=== PATIENT | female | born 1930 | race African-American/Black ===

== ENCOUNTER 2016-08-28 16:32 | Outpatient (CLI) | payer MEDICARE, MEDICAID | END 2016-08-28 16:33 | disposition home or self-care (01) | LOC: MADLABBHPM 16:32 | PROVIDERS: ATTEND Family Medicine | DX: N39.0 Urinary tract infection, site not specified (principal) ==

== ENCOUNTER 2016-09-04 16:06 | Outpatient (CLI) | payer MEDICARE, MEDICAID ==
[2016-09-04 16:46] LABS: Bilirubin Negative (Negative); Blood, Urine Negative (Negative); Clarity Clear (Clear); Glucose, Urine (Dipstick) Negative (Negative); Leukocyte Negative (Negative); Nitrite Negative (Negative); Protein, Urine (Dipstick) Negative (Neg-Trace); Urobilinogen 0.2 mg/dL (0.2-1.0); pH, Urine 5.5 (5.0-9.0)
[2016-09-04 16:47] LABS: Bacteria/HPF Rare-Few HPF (None Seen); RBC/HPF 0-3 HPF (0-3); Squamous Epithelial 0-3 HPF (0-3); WBC/HPF 0-3 HPF (0-3)
[2016-09-04 16:48] LABS: Crystals/HPF 1+ CA OXALATE HPF (Negative); Other Microscopic Description C&S SET UP
== END 2016-09-04 16:07 | disposition home or self-care (01) ==
LOC: MADLAB 16:06
PROVIDERS: ATTEND Family Medicine
DX: N39.0 Urinary tract infection, site not specified (principal)
CPT/HCPCS: 81001; 87086

== ENCOUNTER 2017-07-12 16:24 | Emergency (ER) | payer MEDICARE, MEDICAID ==
[~2017-07-12 16:24] MED LIST: Sodium Chloride 0.9% 1,000 ML BAG ONE; Sodium Chloride 0.9% 100 ML BAG ONE; Sodium Chloride 0.9% 500 ML BAG ONE
[2017-07-12 17:56] LABS: ALT (SGPT) 41 U/L (8-55); AST (SGOT) 49 U/L (5-34); Albumin 3.3 g/dL (3.4-4.8); Alkaline Phosphatase 98 U/L (40-150); Anion Gap 18 mmol/L (10-20); BUN (Urea Nitrogen) 23 mg/dL (9.8-20.1); Bilirubin, Total 0.8 mg/dL (0.2-1.2); Calc. Creatinine Clearance 0 mL/min (70-130); Calcium 10.7 mg/dL (7.8-10.44); Carbon Dioxide 25 mmol/L (23-31); Chloride 112 mmol/L (98-107); Estimated GFR-MDRD 71; Globulin 3.5 g/dL (2.4-3.5); Glucose 223 mg/dL (83-110); Potassium 4.5 mmol/L (3.5-5.1); Protein, Total 6.8 g/dL (6.0-8.3); Sodium 150 mmol/L (136-145)
[2017-07-12 18:14] LABS: Troponin I 0.091 ng/mL (< 0.028)
[2017-07-12 18:17] LABS: #Basophils 0.1 thou/uL (0.0-0.2); #Lymphocytes 0.7 thou/uL (1.20-3.40); #Monocytes 1.3 thou/uL (0.11-0.59); #Neutrophils 13.7 thou/uL (1.40-6.50); %Basophils 0.5 % (0.0-1.0); %Lymphocytes 4.1 % (21.0-51.0); %Monocytes 8.3 % (0.0-10.0); Hemoglobin 15.4 g/dL (12.0-16.0); Mean Corpuscular HGB CONC 31.7 g/dL (32.0-36.0); Mean Corpuscular Volume 91.4 fl (81.0-99.0); Mean Platelet Volume 8.2 fL (7.4-10.4); Platelet Count 198 thou/uL (130-400); RBC Distribution Width 12.6 % (11.5-14.5); Red Blood Cell (RBC) Count 5.33 mill/uL (4.20-5.40); White Blood Cell (WBC) Count 15.7 thou/uL (4.8-10.8)
[2017-07-12 18:22] LABS: CKMB 7.8 ng/mL (0-6.6)
[2017-07-12 18:26] LABS: Bilirubin Small (Negative); Blood, Urine Negative (Negative); Clarity Slightly Cloudy (Clear); Glucose, Urine (Dipstick) Negative (Negative); Leukocyte Negative (Negative); Nitrite Negative (Negative); Protein, Urine (Dipstick) 30 mg/dL (Neg-Trace)
[2017-07-12] MEDS ORDERED: Piperacillin/Tazobactam 3.375 GM VIAL ONE (18:42)
[2017-07-12 18:55] LABS: Bacteria/HPF 4+ HPF (None Seen); RBC/HPF 0-3 HPF (0-3); Specific Gravity, Urine 1.025 (1.002-1.036); WBC/HPF 0-3 HPF (0-3)
--- NOTE | 2017-07-12 19:13 | RAD ---
PORTABLE CHEST 07/12/17 PROVIDED CLINICAL HISTORY: Altered mental status. FINDINGS: Cardiac silhouette is within normal limits. There is tortuosity and ectasia of the thoracic aorta. No focal consolidation, pleural fluid or pneumothorax apparent. IMPRESSION: No evidence for an acute cardiopulmonary process. POS: H
[2017-07-12] MEDS ORDERED: Vancomycin HCl 500 MG VIAL ONE (19:24)
== END 2017-07-12 20:23 | disposition short-term general hospital (02) ==
LOC: MADERS 16:24
DX: E87.0 Hyperosmolality and hypernatremia (principal); E86.0 Dehydration; R41.82 Altered mental status, unspecified; F03.90 Unspecified dementia, unspecified severity, without behavioral disturbance, psychotic disturbance, mood disturbance, and anxiety; E11.9 Type 2 diabetes mellitus without complications
CPT/HCPCS: 36415; 51701; 71045; 80053; 81003; 81015; 82553; 84443; 84484; 85025; 87040; 87086; 93005; 96361; 96365; A4353; J2543; J3370; J7050

== ENCOUNTER 2017-07-17 16:25 | Inpatient (IN) | payer MEDICARE, MEDICAID ==
[2017-07-17] MEDS ORDERED: Acetaminophen 325 MG TAB PO PRN (18:15)
[2017-07-17] MEDS ORDERED: Artificial Tear Sol 15 ML BOT EA EYE PRN (18:16)
[2017-07-17] MEDS ORDERED: Bisacodyl 10 MG SUPP PR PRN (18:16)
[2017-07-17] MEDS ORDERED: Prevnar 13-Val Conj/PF 0.5 ML SYRINGE IM ONE (19:30)
--- NOTE | 2017-07-18 02:30 | HP ---
Erika Diez admitted to [facility] to extended care on 07/17/2017. CHIEF COMPLAINT: Weakness. HISTORY OF PRESENT ILLNESS: The patient is an 87-year-old Emanuel female who lives with her family, wh o take care of her and assist her with all her ADLs. Patient has a history of advanced Alzheimer dis ease, hypertension, diabetes, had been managed with diet alone. Her last hemoglobin A1c of 6.1. Stella yost usually is able to walk very short distances in the home with some assistance. Patient usually eats very well. The patient was admitted [facility] on 07/12/2017 because of increased weak ness, lethargy, and not eating. She was found to be dehydrated with hypernatremia with sodium of 150 . Her GFR was mildly depressed. Her urine showed 4+ bacteria and her lactic acid was elevated. Stella yost was admitted to the hospital with the diagnosis of dehydration, possible urinary tract infection , and hypernatremia secondary to not resulting in alteration of her mental status. The patient was c autiously hydrated and placed on IV Rocephin and Levaquin. An echocardiogram was done which showed l eft ventricle normal size and ejection fraction was 60%-65%. There is some diastolic dysfunction. P valentin's blood culture had no growth and urine culture had no growth. The patient was converted to o ral antibiotics using Levaquin. Her mental status returned to her usual. Her appetite returned to h er normal, but she was left extremely weak. Family had requested that she be transferred to [facility] to nursing home facility for purposes of physical therapy in an effort to try to improve her general functional capability. The patient was seen soon after her admission at [facility] on the afternoon of 07/17/2017. He r daughter is Shannon and other daughter Brenda Ag with her and have been staying with her, however, able to relay her history. They said that she had gone to the hospital because she was not eating, h ad got much weaker, could no longer walk or even a short distance that she had been and was much less responsive. Since her hospitalization, she has not yet been back to her usual self other than the w lucy. They hope to get her back where she can walk a little bit, so they can more easily take car e of her in the home. The patient not able to give any history, but did said she was feeling alright . PAST HISTORY: Hospitalized at [facility] in [place] from 07/12/2017 to 07/17/2017 for UTI, de hydration, and alteration in mental status. The patient has advanced Alzheimer disease, diabetes typ e 2 that is diet controlled. Last hemoglobin A1c was 6.1 in 05/2016. She has hypertension. She als o has history of hypercholesterolemia, bradycardia, and generalized osteoarthritis. Patient has had a laparoscopic cholecystectomy and a tubal ligation. PRESENT MEDICINES: When patient was discharged from [facility], she was on the following medicines, acetaminophen 650 mg every 4 hours as needed, amlodipine 10 mg daily, Artificial Tears 1 d rop in the eyes p.r.n. dryness, aspirin 81 mg daily, Dulcolax suppository 10 mg 1 daily p.r.n., carve dilol 3.125 mg b.i.d., enoxaparin 30 mg subcu daily and Levaquin 500 mg daily. ALLERGIES: MOBIC, makes her crazy; HYDROCHLOROTHIAZIDE, causes dizziness and vertigo; KLOR-CON, upse t stomach. REVIEW OF SYSTEMS: Patient has not had any trouble with her eye, ear, nose or throat. PULMONARY: No shortness of breath. CARDIOVASCULAR: No chest pain. GASTROINTESTINAL: Patient's appetite is getting back to her normal. She has been eating good. She is eating a mechanical soft diet. She has had no vomiting, no diarrhea. GENITOURINARY: Incontinent of urine. ADLs: The patient is able to walk very a few steps with her family assisting and she can sit up in a chair. She can feed herself. She requires someone to help dress her and bathe her. She is inconti nent of urine and stools. All her instrumental ADLs require family to tend to. HABITS: Alcohol none. Tobacco none. SOCIAL HISTORY: Patient lives with her family to take care of her. CODE STATUS: DNR. PHYSICAL EXAMINATION: GENERAL: Shows a very pleasant 87-year-old Emanuel female who is lying in bed and humming and she is s miling, looks very comfortable and in no distress. VITAL SIGNS: Shows a temperature of 97.3, pulse 58, respirations 18, O2 sat 99%, blood pressure 92/5 2. Her weight is 134. HEAD: Normocephalic. EYES: Pupils were equal, round, and reactive. EARS: Left TM clear. Right ear could not visualize the TMs. NOSE: Normal. MOUTH AND THROAT: Mucous membranes are moist. NECK: Carotids are equal and strong, no bruits. Thyroid not enlarged. LUNGS: Clear. HEART: Regular rate. No murmurs. ABDOMEN: Soft. No organomegaly, no areas of tenderness. EXTREMITIES: No edema. NEUROLOGIC: Patient is disoriented to time, place, and situation. She has generalized weakness, but no focal weakness. IMPRESSION: 1. Generalized weakness. a. With recent illness, she has had decline in her functional capability where she is no longer to a [facility] with transfer or walk a few steps. She was prior to the acute illness. 2. Status post hospitalization at [facility] from 07/12/2017 until 07/17/2017 for; a. De hydration with hypernatremia and mild decline in GFR. b. Alteration in mental status that resolved. c. Possible urinary tract infection. Blood cultures and urine culture were negative. Do not know i f the urine was collected after antibiotics were initiated. 3. Advanced Alzheimer disease. a. Complicated by urine and fecal incontinence. b. Requires assistance with her ADLs and all her instrumental ADLs. 4. Hypertension. a. Presently too tightly controlled. 5. History of bradycardia, asymptomatic. 6. History of diabetes mellitus type 2, has not required any medication. 7. Generalized osteoarthritis, particularly of the knees. CODE STATUS: DNR. PLAN: The patient has been admitted to [facility] where Physical therapy will work with her in an effort to try to improve her functional capability. Goals will be to try to help get her to a [facility] where she can assist with transferring, may take just a few steps and also feed herself. These s kills would greatly assist the family's ability to attend her in the home. We will continue the DVT prophylaxis with Lovenox. We will stop the amlodipine since pressure too tightly controlled and she has a history of this causing her to go crazy and also will stop the carvedilol due to her bradycardi a. See orders.
[2017-07-18 06:07] LABS: Anion Gap 13 mmol/L (10-20); BUN (Urea Nitrogen) 7 mg/dL (9.8-20.1); Calc. Creatinine Clearance 65 mL/min (70-130); Calcium 9.1 mg/dL (7.8-10.44); Carbon Dioxide 26 mmol/L (23-31); Chloride 109 mmol/L (98-107); Estimated GFR-MDRD Greater than 90; Glucose 102 mg/dL (83-110); Potassium 3.4 mmol/L (3.5-5.1); Sodium 145 mmol/L (136-145)
[2017-07-18 06:19] LABS: #Basophils 0.1 thou/uL (0.0-0.2); #Eosinphils 0.1 thou/uL (0.0-0.7); #Lymphocytes 1.7 thou/uL (1.20-3.40); #Monocytes 0.4 thou/uL (0.11-0.59); #Neutrophils 1.7 thou/uL (1.40-6.50); %Basophils 1.6 % (0.0-1.0); %Eosinophils 2.1 % (0.0-10.0); %Lymphocytes 44.2 % (21.0-51.0); %Neutrophils 43.1 % (42.0-75.0); Hemoglobin 11.8 g/dL (12.0-16.0); Mean Corpuscular Hemoglobin 28.7 pg (27.0-31.0); Mean Corpuscular Volume 89.7 fl (81.0-99.0); Platelet Count 227 thou/uL (130-400); RBC Distribution Width 12.1 % (11.5-14.5); White Blood Cell (WBC) Count 3.9 thou/uL (4.8-10.8)
[2017-07-18] MEDS: Aspirin 81 mg Enteric Coated Tablet PO SCH (08:30)
[2017-07-18] MEDS: Enoxaparin Sodium 30 MG/0.3 ML SYRINGE SC SCH (08:30)
[2017-07-18] MEDS: Saccharomyces boulardii 250 MG CAP PO SCH (08:30)
--- NOTE | 2017-07-18 08:35 | PRG ---
DATE OF SERVICE: 07/18/2017 SUBJECTIVE: The patient had an uneventful night. Her daughters Shannon and Jackie stayed with her and said she has rested well. This morning she has no complaints. OBJECTIVE: The patient is lying in bed, waking up. She appears comfortable, in no distress. Her te mp 98.8, pulse 60, respirations 18, O2 sat 97% on room air, blood pressure 107/53. Her lungs were cl ear. Heart, regular rate. Her lab shows an H&H of 11.8 and 36.7, white blood cell count 3900 with 43% segs, 44% lymphocytes, an d platelet count of 227,000. Sodium 145, potassium 3.4, BUN 7, creatinine 0.61, GFR greater than 90, glucose 102. IMPRESSION: 1. Generalized weakness. a. With recent illness, she has had decline in her functional capability where she is no longer to a ssist with transfer or walk a few steps. She was prior to the acute illness. b. Stable as of 07/18/2017. 2. Status post hospitalization at [facility] from 07/12/2017 until 07/17/2017 for; a. De hydration with hypernatremia and mild decline in GFR. b. Alteration in mental status that resolved. c. Possible urinary tract infection. Blood cultures and urine culture were negative. Do not know i f the urine was collected after antibiotics were initiated. 3. Advanced Alzheimer disease. a. Complicated by urine and fecal incontinence. b. Requires assistance with her ADLs and all her instrumental ADLs. 4. Hypertension. a. Controlled a little better since some of the BP medicine has been stopped 07/18/2017. 5. History of bradycardia, asymptomatic. 6. History of diabetes mellitus type 2, has not required any medication. 7. Generalized osteoarthritis, particularly of the knees. PLAN: Continue present care. Physical therapy will begin working with patient in an effort to try t o improve her functional capabilities.
[2017-07-19] MEDS: Enoxaparin Sodium 30 MG/0.3 ML SYRINGE SC SCH (08:13)
[2017-07-19] MEDS: Aspirin 81 mg Enteric Coated Tablet PO SCH (08:13)
[2017-07-19] MEDS: Saccharomyces boulardii 250 MG CAP PO SCH (08:13)
--- NOTE | 2017-07-19 11:17 | PRG ---
DATE OF SERVICE: 07/19/2017 SUBJECTIVE: The patient had a good night. The patient's daughter, Shannon, said that the patient was ab le to get up in a chair with the help of physical therapy. They are just gradually trying to bring h er along since she had been so weak. OBJECTIVE: The patient is lying in bed awake, appears in no distress. Her vital signs are stable. Lungs are clear. Heart, regular rate. Extremities, no edema. ASSESSMENT: 1. Generalized weakness. A. Has been progressed to sitting up in a chair as of 07/19/2017. 2. Status post hospitalization at [facility] from 07/12/2017 until 07/17/2017 for; A. Dehydration with hypernatremia and mild decline in GFR. B. Alteration in mental status that resolved. C. Possible urinary tract infection. Blood cultures and urine culture were negative. Do not kn ow if the urine was collected after antibiotics were initiated. 3. Advanced Alzheimer disease. A. Complicated by urine and fecal incontinence. B. Requires assistance with her ADLs and all her instrumental ADLs. 4. Hypertension. A. Controlled a little better since some of the BP medicine has been stopped 07/18/2017. 5. History of bradycardia, asymptomatic. 6. History of diabetes mellitus type 2, has not required any medication. 7. Generalized osteoarthritis, particularly of the knees. PLAN: Continue present care.
[2017-07-19] MEDS ORDERED: HYDROcodone/Acetaminophen 10/325 mg Tablet ONE (12:11)
[2017-07-20] MEDS: Enoxaparin Sodium 30 MG/0.3 ML SYRINGE SC SCH (08:33)
[2017-07-20] MEDS: Saccharomyces boulardii 250 MG CAP PO SCH (08:33)
[2017-07-20] MEDS: Aspirin 81 mg Enteric Coated Tablet PO SCH (08:33)
--- NOTE | 2017-07-20 10:33 | PRG ---
DATE OF SERVICE: 07/20/2017 SUBJECTIVE: The patient's daughter said that she sat up quite a bit yesterday. She is really not ab le to help much with transfers yet and she did attempt to try to help feed herself yesterday. OBJECTIVE: GENERAL: The patient is lying in bed, alert, and appears comfortable, in no distress. VITAL SIGNS: Temperature 98.2, pulse was 47, earlier it was 84, respirations 20, O2 sat 96%, blood p ressure 102/54. LUNGS: Clear. HEART: Regular rate. ASSESSMENT: 1. Generalized weakness. A. Tolerating sitting up in a bedside chair for longer periods, but requires maximum assist with transfers as of 07/20/2017. 2. Status post hospitalization at [facility] from 07/12/2017 until 07/17/2017 for; A. Dehydration with hypernatremia and mild decline in GFR. B. Alteration in mental status that resolved. C. Possible urinary tract infection. Blood cultures and urine culture were negative. Do not kn ow if the urine was collected after antibiotics were initiated. 3. Advanced Alzheimer disease. A. Complicated by urine and fecal incontinence. B. Requires assistance with her ADLs and all her instrumental ADLs. 4. Hypertension. A. Controlled a little better since some of the BP medicine has been stopped 07/18/2017. 5. History of bradycardia, asymptomatic. 6. History of diabetes mellitus type 2, has not required any medication. 7. Generalized osteoarthritis, particularly of the knees. 8. Bradycardia. A. Secondary to the carvedilol. In the past, the patient has had some trouble with some beta bl ockers with bradycardia. PLAN: The patient had been on carvedilol at [facility], but this was stopped over here. We will c ontinue just to monitor this with vital signs.
[2017-07-21] MEDS: Aspirin 81 mg Enteric Coated Tablet PO SCH (08:35)
[2017-07-21] MEDS: Saccharomyces boulardii 250 MG CAP PO SCH (08:35)
[2017-07-21] MEDS: Enoxaparin Sodium 30 MG/0.3 ML SYRINGE SC SCH (08:35)
[2017-07-22] MEDS: Saccharomyces boulardii 250 MG CAP PO SCH (08:15)
[2017-07-22] MEDS: Aspirin 81 mg Enteric Coated Tablet PO SCH (08:15)
[2017-07-22] MEDS: Enoxaparin Sodium 30 MG/0.3 ML SYRINGE SC SCH (08:15)
[2017-07-23] MEDS: Saccharomyces boulardii 250 MG CAP PO SCH (08:29)
[2017-07-23] MEDS: Enoxaparin Sodium 30 MG/0.3 ML SYRINGE SC SCH (08:29)
[2017-07-23] MEDS: Aspirin 81 mg Enteric Coated Tablet PO SCH (08:29)
--- NOTE | 2017-07-23 09:05 | PRG ---
DATE OF SERVICE: 07/23/2017 SUBJECTIVE: The patient's daughter said that she is resting well. She is beginning to feed herself. OBJECTIVE: The patient is lying in bed, did not attempt to talk to me this morning. Vital signs heather w a temperature of 97.9, pulse 45, respirations 18, O2 sat 93% on room air, blood pressure 127/58. H er lungs are clear. Heart, regular rate. Extremities, no edema. ASSESSMENT: 1. Generalized weakness. A. Tolerating sitting up in a bedside chair for longer periods, but requires maximum assist with transfers as of 07/23/2017. 2. Status post hospitalization at [facility] from 07/12/2017 until 07/17/2017 for; A. Dehydration with hypernatremia and mild decline in GFR. B. Alteration in mental status that resolved. C. Possible urinary tract infection. Blood cultures and urine culture were negative. Do not kn ow if the urine was collected after antibiotics were initiated. 3. Advanced Alzheimer disease. A. Complicated by urine and fecal incontinence. B. Requires assistance with her ADLs and all her instrumental ADLs. 4. Hypertension. A. Controlled a little better since some of the BP medicine has been stopped 07/18/2017. 5. Bradycardia. A. Asymptomatic as of 07/23/2017. 6. History of diabetes mellitus type 2, has not required any medication. 7. Generalized osteoarthritis, particularly of the knees. PLAN: Continue present care. Continue physical therapy.
[2017-07-24] MEDS: Saccharomyces boulardii 250 MG CAP PO SCH (08:35)
[2017-07-24] MEDS: Enoxaparin Sodium 30 MG/0.3 ML SYRINGE SC SCH (08:35)
[2017-07-24] MEDS: Aspirin 81 mg Enteric Coated Tablet PO SCH (08:35)
[2017-07-25] MEDS: Enoxaparin Sodium 30 MG/0.3 ML SYRINGE SC SCH (08:13)
[2017-07-25] MEDS: Aspirin 81 mg Enteric Coated Tablet PO SCH (08:13)
[2017-07-25] MEDS: Saccharomyces boulardii 250 MG CAP PO SCH (08:13)
--- NOTE | 2017-07-25 13:23 | PRG ---
DATE OF SERVICE: 07/25/2017 SUBJECTIVE: The patient is in her room and is covered with a sheet. Her daughters are in the room w ith her. She said she slept well. Yesterday, she was up in the chair more. She started to try to u se her feet a little bit to help with transfer. OBJECTIVE: GENERAL: The patient is sleeping, but easily aroused. She is alert and appears in no distress. VIT AL SIGNS: Temperature 98.1, pulse 55, respirations 17, O2 sat 98% on room air, blood pressure 105/55 . LUNGS: Clear. HEART: Regular rate. EXTREMITIES: No edema. ASSESSMENT: 1. Generalized weakness. A. Tolerating sitting up in a bedside chair for longer periods, but requires maximum assist with transfers as of 07/25/2017. 2. Status post hospitalization at [facility] from 07/12/2017 until 07/17/2017 for; A. Dehydration with hypernatremia and mild decline in GFR. B. Alteration in mental status that resolved. C. Possible urinary tract infection. Blood cultures and urine culture were negative. Do not kn ow if the urine was collected after antibiotics were initiated. 3. Advanced Alzheimer disease. A. Complicated by urine and fecal incontinence. B. Requires assistance with her ADLs and all her instrumental ADLs. 4. Hypertension. A. Stable as of 07/25/2017. 5. Bradycardia. A. Asymptomatic as of 07/25/2017. 6. History of diabetes mellitus type 2, has not required any medication. 7. Generalized osteoarthritis, particularly of the knees. PLAN: Continue present care. Continue physical therapy. Once patient is able to assist more with h er transfers and hopefully maybe even take a few steps, this would be of great help for the family idris odalys care for her at her home. Then we will discharge her home.
[2017-07-26] MEDS: Saccharomyces boulardii 250 MG CAP PO SCH (08:31)
[2017-07-26] MEDS: Aspirin 81 mg Enteric Coated Tablet PO SCH (08:32)
[2017-07-26] MEDS: Enoxaparin Sodium 30 MG/0.3 ML SYRINGE SC SCH (08:32)
[2017-07-27] MEDS: Saccharomyces boulardii 250 MG CAP PO SCH (08:23)
[2017-07-27] MEDS: Enoxaparin Sodium 30 MG/0.3 ML SYRINGE SC SCH (08:23)
[2017-07-27] MEDS: Aspirin 81 mg Enteric Coated Tablet PO SCH (08:23)
--- NOTE | 2017-07-27 11:07 | PRG ---
DATE OF SERVICE: 07/27/2017 SUBJECTIVE: The patient is doing better. She is eating good. The patient's daughter is with her an d assisting her with her food. She said she does sit up in a chair some during the day, but requires quite a bit of effort to transfer her. In review of the physical therapy record, patient is getting up into a chair, but it requires maximum assist for the transfer from bed to a chair. The patient i s able to stand and pivot a little bit with the transfer, but still the patient is not yet able to wa lk. OBJECTIVE: GENERAL: The patient lying in bed, looks very comfortable. VITAL SIGNS: Her vital signs show a temperature of 98, pulse 68, respirations 18, O2 sat 93% on room air, blood pressure 105/56. LUNGS: Clear. HEART: Regular rate. ASSESSMENT: 1. Generalized weakness. A. The patient is tolerating sitting up in a bedside chair. She is requiring maximum assist wit h transfer from bed to chair, starting to be able to pivot a little bit with the transfer as of 07/27/2017. 2. Status post hospitalization at [facility] from 07/12/2017 until 07/17/2017 for; A. Dehydration with hypernatremia and mild decline in GFR. B. Alteration in mental status that resolved. C. Possible urinary tract infection. Blood cultures and urine culture were negative. Do not kn ow if the urine was collected after antibiotics were initiated. 3. Advanced Alzheimer disease. A. Complicated by urine and fecal incontinence. B. Requires assistance with her ADLs and all her instrumental ADLs. 4. Hypertension. A. Stable as of 07/25/2017. 5. Bradycardia. A. Asymptomatic as of 07/25/2017. 6. History of diabetes mellitus type 2, has not required any medication. 7. Generalized osteoarthritis, particularly of the knees. PLAN: Visit with the patient's daughter and she has been with her and has seen the degree of difficu lty it is with the transfer. They are hoping that this will improve some. They would like to try to manage her in the home and if she can do better with the transfers, it would certainly make things ea sier for them. Since his hospitalization, patient has had no capability of any walking. Physical th mitchell is also doing in-bed range of motion exercises and some resistance exercises. We will continue these and continue physical therapy to see if these goals of assistance for further improvement with transfer can be made.
[2017-07-28] MEDS: Saccharomyces boulardii 250 MG CAP PO SCH (08:46)
[2017-07-28] MEDS: Enoxaparin Sodium 30 MG/0.3 ML SYRINGE SC SCH (08:46)
[2017-07-28] MEDS: Aspirin 81 mg Enteric Coated Tablet PO SCH (08:46)
[2017-07-29] MEDS: Saccharomyces boulardii 250 MG CAP PO SCH (08:45)
[2017-07-29] MEDS: Enoxaparin Sodium 30 MG/0.3 ML SYRINGE SC SCH (08:45)
[2017-07-29] MEDS: Aspirin 81 mg Enteric Coated Tablet PO SCH (08:45)
[2017-07-30] MEDS: Enoxaparin Sodium 30 MG/0.3 ML SYRINGE SC SCH (09:07)
[2017-07-30] MEDS: Saccharomyces boulardii 250 MG CAP PO SCH (09:07)
[2017-07-30] MEDS: Aspirin 81 mg Enteric Coated Tablet PO SCH (09:07)
--- NOTE | 2017-07-30 13:20 | PRG ---
DATE OF SERVICE: 07/30/2017 SUBJECTIVE: Nurses report no change in patient. OBJECTIVE: The patient is lying in bed on her left side. She is awake, but did not attempt to talk. Her lungs are clear. Heart, regular rate. Extremities, no edema. ASSESSMENT: 1. Generalized weakness. A. The patient is tolerating sitting up in a bedside chair. She is requiring maximum assist wit h transfer from bed to chair, starting to be able to pivot a little bit with the transfer as of 07/30/2017. Conditi on essentially unchanged. 2. Status post hospitalization at [facility] from 07/12/2017 until 07/17/2017 for; A. Dehydration with hypernatremia and mild decline in GFR. B. Alteration in mental status that resolved. C. Possible urinary tract infection. Blood cultures and urine culture were negative. Do not kn ow if the urine was collected after antibiotics were initiated. 3. Advanced Alzheimer disease. A. Complicated by urine and fecal incontinence. B. Requires assistance with her ADLs and all her instrumental ADLs. 4. Hypertension. A. Stable as of 07/30/2017. 5. Bradycardia. A. Asymptomatic as of 07/30/2017. 6. History of diabetes mellitus type 2, has not required any medication. 7. Generalized osteoarthritis, particularly of the knees. PLAN: Continue efforts towards physical therapy. The patient may be at her maximum benefit. We yasir l see how she does over the next few days.
[2017-07-31] MEDS: Saccharomyces boulardii 250 MG CAP PO SCH (09:31)
[2017-07-31] MEDS: Aspirin 81 mg Enteric Coated Tablet PO SCH (09:31)
[2017-07-31] MEDS: Enoxaparin Sodium 30 MG/0.3 ML SYRINGE SC SCH (09:35)
[2017-08-01] MEDS: Aspirin 81 mg Enteric Coated Tablet PO SCH (09:08)
[2017-08-01] MEDS: Saccharomyces boulardii 250 MG CAP PO SCH (09:08)
[2017-08-01] MEDS: Enoxaparin Sodium 30 MG/0.3 ML SYRINGE SC SCH (09:08)
--- NOTE | 2017-08-01 10:34 | PRG ---
DATE OF SERVICE: 08/01/2017 SUBJECTIVE: The patient's daughter, Shannon, is with her. Ordinarily there is one of the daughters with her all the time. The patient did not attempt to speak any this morning. Yesterday she sat up in a chair for quite a while, still requiring maximum assist with transfer even into the chair. OBJECTIVE: The patient is lying in bed, looks very comfortable and in no distress. Temp 97.9, pulse 45, respirations 18, O2 sat 96% on room air, blood pressure 110/62. Lungs are clear. Heart; regula r rate. Extremities, no edema. ASSESSMENT: 1. Generalized weakness. A. The patient tolerating sitting up in the chair, but still maximum assist with transfer as of 08/01/2017. 2. Status post hospitalization at [facility] from 07/12/2017 until 07/17/2017 for; A. Dehydration with hypernatremia and mild decline in GFR. B. Alteration in mental status that resolved. C. Possible urinary tract infection. Blood cultures and urine culture were negative. Do not kn ow if the urine was collected after antibiotics were initiated. 3. Advanced Alzheimer disease. A. Complicated by urine and fecal incontinence. B. Requires assistance with her ADLs and all her instrumental ADLs. 4. Hypertension. A. Stable as of 07/30/2017. 5. Bradycardia. A. Asymptomatic as of 08/01/2017. PLAN: I visited with patient's daughter, Shannon. She said that their plans are eventually to manage th e patient in the home. They had hoped that her condition might improve where she was a little strong er, which would help lighten their burden in the care of her at home. I will ask physical therapy to work with the family to help educate them on care of the mother, movement of the mother, transferrin g the mother and continued in home physical therapy. I do not think patient will progress much beyon d where she is right now. Her advanced Alzheimer disease certainly limits her ability to work with p hysical therapy. We will target another week to give further efforts at therapy and education of the family.
[2017-08-02] MEDS: Saccharomyces boulardii 250 MG CAP PO SCH (09:11)
[2017-08-02] MEDS: Enoxaparin Sodium 30 MG/0.3 ML SYRINGE SC SCH (09:11)
[2017-08-02] MEDS: Aspirin 81 mg Enteric Coated Tablet PO SCH (09:11)
[2017-08-03] MEDS: Enoxaparin Sodium 30 MG/0.3 ML SYRINGE SC SCH (09:01)
[2017-08-03] MEDS: Aspirin 81 mg Enteric Coated Tablet PO SCH (09:01)
[2017-08-03] MEDS: Saccharomyces boulardii 250 MG CAP PO SCH (09:01)
--- NOTE | 2017-08-03 13:43 | PRG ---
DATE OF SERVICE: 08/03/2017 SUBJECTIVE: I visited with the patient's daughter about her mom, Ms. Erika Diez. She said she slep t well. Yesterday she sat up in a chair for about 3 hours. She still is maximum assist. She eats g ood, but with liquids she tends to just hold in her mouth and ends up oftentimes having to have her m outh suctioned. OBJECTIVE: The patient is lying quietly in bed awake, but did not attempt to talk. She appears comf ortable, in no distress. Her temperature is 97.6, pulse 45, respirations 16, O2 sat 98% on room air, blood pressure 107/53. Lungs are clear. Heart, regular rate. ASSESSMENT: 1. Generalized weakness. A. The patient tolerating sitting up in the chair, but still maximum assist with transfer as of 08/03/2017. 2. Status post hospitalization at [facility] from 07/12/2017 until 07/17/2017 for; A. Dehydration with hypernatremia and mild decline in GFR. B. Alteration in mental status that resolved. C. Possible urinary tract infection. Blood cultures and urine culture were negative. Do not kn ow if the urine was collected after antibiotics were initiated. 3. Advanced Alzheimer disease. A. Complicated by urine and fecal incontinence. B. Requires assistance with her ADLs and all her instrumental ADLs. 4. Hypertension. A. Stable as of 08/03/2017. 5. Bradycardia. A. Asymptomatic as of 08/03/2017. PLAN: Will continue present care. I visited with the daughter about having to stay a little longer under physical therapy to see if any further advancement can be made. Anticipate probable discharge within a week. I visited with patient about going home under hospice. I offered to have hospice vis it with them just to explain how they could assist. Her daughter and the family understands the maciej ent has had good graft continual decline over the last year and there is no expectation that she will get any better. She will continual progressive downhill course, particularly with advanced Alzheime r's. They will consider hospice. This might allow them a little more help in the home.
[2017-08-04] MEDS: Aspirin 81 mg Enteric Coated Tablet PO SCH (08:31)
[2017-08-04] MEDS: Saccharomyces boulardii 250 MG CAP PO SCH (08:31)
[2017-08-04] MEDS: Enoxaparin Sodium 30 MG/0.3 ML SYRINGE SC SCH (08:31)
[2017-08-05] MEDS: Enoxaparin Sodium 30 MG/0.3 ML SYRINGE SC SCH (08:21)
[2017-08-05] MEDS: Saccharomyces boulardii 250 MG CAP PO SCH (08:21)
[2017-08-05] MEDS: Aspirin 81 mg Enteric Coated Tablet PO SCH (08:21)
[2017-08-06] MEDS: Aspirin 81 mg Enteric Coated Tablet PO SCH (09:14)
[2017-08-06] MEDS: Saccharomyces boulardii 250 MG CAP PO SCH (09:14)
[2017-08-06] MEDS: Enoxaparin Sodium 30 MG/0.3 ML SYRINGE SC SCH (09:14)
--- NOTE | 2017-08-06 15:52 | PRG ---
DATE OF SERVICE: 08/06/2017 SUBJECTIVE: The patient's daughter, Azalia, said that the patient slept well last night. She is sitti ng up in a chair for 2-3 hours. She has not had any complaints. She is eating, but requires assista nce or someone to feed her. OBJECTIVE: The patient is lying in bed, looks very comfortable, in no distress. Her temperature is 97.6, pulse 50, respirations 20, O2 sat 95% on room air, blood pressure 120/68. Lungs are clear. Heart, slow regular rate. Extremities, no edema. ASSESSMENT: 1. Generalized weakness. A. The patient tolerating sitting up in the chair, but still maximum assist with transfer as of 08/06/2017. 2. Status post hospitalization at [facility] from 07/12/2017 until 07/17/2017 for; A. Dehydration with hypernatremia and mild decline in GFR. B. Alteration in mental status that resolved. C. Possible urinary tract infection. Blood cultures and urine culture were negative. Do not kn ow if the urine was collected after antibiotics were initiated. 3. Advanced Alzheimer disease. A. Complicated by urine and fecal incontinence. B. Requires assistance with her ADLs and all her instrumental ADLs. 4. Hypertension. A. Stable as of 08/06/2017. 5. Bradycardia. A. Asymptomatic as of 08/06/2017. PLAN: The patient's condition is little changed. I will continue present care. I visited with the daughter, Azalia, and we are targeting the end of the week, Sunday08/10/2017 for discharge. Again I visited with them about possible hospice. She said the family has not really come together on this decision, but I offered for them to meet with hospice if they would like just to know more exactly wh at they would offer. The daughters state they will discuss this and let me know if they decide they want a consult with them.
[2017-08-07] MEDS: Aspirin 81 mg Enteric Coated Tablet PO SCH (08:23)
[2017-08-07] MEDS: Saccharomyces boulardii 250 MG CAP PO SCH (08:23)
[2017-08-07] MEDS: Enoxaparin Sodium 30 MG/0.3 ML SYRINGE SC SCH (08:27)
[2017-08-08] MEDS: Enoxaparin Sodium 30 MG/0.3 ML SYRINGE SC SCH (08:35)
[2017-08-08] MEDS: Saccharomyces boulardii 250 MG CAP PO SCH (08:35)
[2017-08-08] MEDS: Aspirin 81 mg Enteric Coated Tablet PO SCH (08:35)
--- NOTE | 2017-08-08 11:00 | PRG ---
DATE OF SERVICE: 08/08/2017 SUBJECTIVE: The patient is doing about the same. Her family says she is eating pretty good and she is sitting up for about 3 hours each day. Family is making preparations for her to come home and be cared for there at this time under home health. The family had asked that we plan on Sunday08/13/19 18 for discharge which should be fine and nurses will help arrange for home health. OBJECTIVE: The patient is lying in bed, alert, did not attempt to talk. She looks very comfortable. Her temperature is 97.6, pulse 50, respirations 20, O2 sat 95% on room air, blood pressure 120/60. Lungs are clear. Heart, slow regular rate. Extremities, no edema. ASSESSMENT: 1. Generalized weakness. A. The patient tolerating sitting up in the chair, but still maximum assist with transfer as of 08/08/2017. 2. Status post hospitalization at [facility] from 07/12/2017 until 07/17/2017 for; A. Dehydration with hypernatremia and mild decline in GFR. B. Alteration in mental status that resolved. C. Possible urinary tract infection. Blood cultures and urine culture were negative. Do not kn ow if the urine was collected after antibiotics were initiated. 3. Advanced Alzheimer disease. A. Complicated by urine and fecal incontinence. B. Requires assistance with her ADLs and all her instrumental ADLs. 4. Hypertension. A. Stable as of 08/08/2017. 5. Bradycardia. A. Asymptomatic as of 08/08/2017. PLAN: Continue present care. Family is making preparations for her discharge on Sunday08/13/2017. Home health will assist. The family is still undecided regarding hospice.
[2017-08-09] MEDS: Saccharomyces boulardii 250 MG CAP PO SCH (08:17)
[2017-08-09] MEDS: Aspirin 81 mg Enteric Coated Tablet PO SCH (08:17)
[2017-08-09] MEDS: Enoxaparin Sodium 30 MG/0.3 ML SYRINGE SC SCH (08:17)
[2017-08-10] MEDS: Enoxaparin Sodium 30 MG/0.3 ML SYRINGE SC SCH (10:00)
[2017-08-10] MEDS: Aspirin 81 mg Enteric Coated Tablet PO SCH (10:00)
[2017-08-10] MEDS: Saccharomyces boulardii 250 MG CAP PO SCH (10:00)
--- NOTE | 2017-08-10 13:42 | PRG ---
DATE OF SERVICE: 08/10/2017 SUBJECTIVE: The patient said that patient is doing about the same. She still sits up for 2-3 hours everyday. She is eating pretty good, but requires someone to feed her. Family is making preparation s to bring her home on Sunday08/13/2017. OBJECTIVE: GENERAL: The patient is lying in bed. She just waking up. She appears comfortable and not in any d istress. VITAL SIGNS: Her temperature is 97.5, pulse 47, respirations 16, O2 sat 97% on room air, blood press ure 111/56. LUNGS: Clear. HEART: Slow, regular rate. EXTREMITIES: No edema. ASSESSMENT: 1. Generalized weakness. A. The patient tolerating sitting up in the chair, but still maximum assist with transfer as of 08/10/2017. 2. Status post hospitalization at [facility] from 07/12/2017 until 07/17/2017 for; A. Dehydration with hypernatremia and mild decline in GFR. B. Alteration in mental status that resolved. C. Possible urinary tract infection. Blood cultures and urine culture were negative. Do not kn ow if the urine was collected after antibiotics were initiated. 3. Advanced Alzheimer disease. A. Complicated by urine and fecal incontinence. B. Requires assistance with her ADLs and all her instrumental ADLs. 4. Hypertension. A. Stable as of 08/10/2017. 5. Bradycardia. A. Asymptomatic as of 08/10/2017. PLAN: Patient's condition is unchanged. We will continue present efforts. Family is making prepara tion for patient to come home on Sunday to 08/13/2017.
[2017-08-11] MEDS: Saccharomyces boulardii 250 MG CAP PO SCH (08:28)
[2017-08-11] MEDS: Aspirin 81 mg Enteric Coated Tablet PO SCH (08:28)
[2017-08-11] MEDS: Enoxaparin Sodium 30 MG/0.3 ML SYRINGE SC SCH (08:28)
[2017-08-12] MEDS: Saccharomyces boulardii 250 MG CAP PO SCH (09:49)
[2017-08-12] MEDS: Aspirin 81 mg Enteric Coated Tablet PO SCH (09:49)
[2017-08-12] MEDS: Enoxaparin Sodium 30 MG/0.3 ML SYRINGE SC SCH (09:49)
[2017-08-13] MEDS: Saccharomyces boulardii 250 MG CAP PO SCH (08:37)
[2017-08-13] MEDS: Enoxaparin Sodium 30 MG/0.3 ML SYRINGE SC SCH (08:37)
[2017-08-13] MEDS: Aspirin 81 mg Enteric Coated Tablet PO SCH (08:37)
--- NOTE | 2017-08-13 12:52 | PRG ---
DATE OF SERVICE: 08/13/2017 SUBJECTIVE: The patient's daughter is with her and she said that she had had a good night. The janelle hter said that the family has decided that they do not think that they will be able to take care of h er adequately at home and are now looking at usp placement. Originally we planned on discha rge today, but this will be delayed to give them opportunities to arrange usp placement. OBJECTIVE: The patient is lying in bed on her left side. She is awake and appears in no distress. Her temperature is 97.9, her pulse 52, respirations 18, O2 sat 95% on room air, blood pressure 122/58 . Lungs are clear. Heart, regular rate. Extremities, no edema. ASSESSMENT: 1. Generalized weakness. A. The patient tolerating sitting up in the chair, but still maximum assist with transfer as of 08/13/2017. Unchanged. 2. Status post hospitalization at [facility] from 07/12/2017 until 07/17/2017 for; A. Dehydration with hypernatremia and mild decline in GFR. B. Alteration in mental status that resolved. C. Possible urinary tract infection. Blood cultures and urine culture were negative. Do not kn ow if the urine was collected after antibiotics were initiated. 3. Advanced Alzheimer disease. A. Complicated by urine and fecal incontinence. B. Requires assistance with her ADLs and all her instrumental ADLs. 4. Hypertension. 4. A. Blood pressure a bit normal as of 08/13/2017. 5. Bradycardia. A. Asymptomatic as of 08/13/2017. PLAN: Patient's condition is stable. She has not really made any progress with physical therapy, or iginally family had thought they could manage her at home, but saying that she has really not gotten any better, they felt like her level of care will exceed what they confide in the home. There are no w looking into usp placement. We will delay any discharge until this can be arranged.
[2017-08-14] MEDS: Saccharomyces boulardii 250 MG CAP PO SCH (08:17)
[2017-08-14] MEDS: Enoxaparin Sodium 30 MG/0.3 ML SYRINGE SC SCH (08:17)
[2017-08-14] MEDS: Aspirin 81 mg Enteric Coated Tablet PO SCH (08:17)
[2017-08-15] MEDS: Saccharomyces boulardii 250 MG CAP PO SCH (09:15)
[2017-08-15] MEDS: Aspirin 81 mg Enteric Coated Tablet PO SCH (09:15)
[2017-08-15] MEDS: Enoxaparin Sodium 30 MG/0.3 ML SYRINGE SC SCH (09:15)
--- NOTE | 2017-08-15 10:09 | PRG ---
DATE OF SERVICE: 08/15/2017 SUBJECTIVE: The patient's daughters, Azalia and Hira, are with her this morning. They said she is c omfortable. They have been looking at nursing homes primarily in the [place] area, but have not yet made the decision on which one. The patient has been doing well, rested well, eating good with help. She continues to sit up in a chair, but again requiring maximum assistance for transfer. OBJECTIVE: The patient lying in bed, alert, says a few words, and looks very comfortable. Her tempe rature is 97.7, pulse 50, respirations 20, O2 sat 95% on room air, blood pressure 114/59. Lungs, bishnu ar. Heart, regular rate. Extremities, no edema. ASSESSMENT: 1. Generalized weakness. A. The patient tolerating sitting up in the chair, but still maximum assist with transfer as of 08/15/2017. Unchanged. 2. Status post hospitalization at [facility] from 07/12/2017 until 07/17/2017 for; A. Dehydration with hypernatremia and mild decline in GFR. B. Alteration in mental status that resolved. C. Possible urinary tract infection. Blood cultures and urine culture were negative. Do not kn ow if the urine was collected after antibiotics were initiated. 3. Advanced Alzheimer disease. A. Complicated by urine and fecal incontinence. B. Requires assistance with her ADLs and all her instrumental ADLs. 4. Hypertension. A. Controlled. 5. Bradycardia. A. Asymptomatic as of 08/15/2017. PLAN: Continue present care. The patient is ready for discharge once the prison has been mam[facility] c[facility] and approval has been received. Family is working on this.
[2017-08-16] MEDS: Enoxaparin Sodium 30 MG/0.3 ML SYRINGE SC SCH (09:00)
[2017-08-16] MEDS: Aspirin 81 mg Enteric Coated Tablet PO SCH (09:00)
[2017-08-16] MEDS: Saccharomyces boulardii 250 MG CAP PO SCH (09:00)
[2017-08-17] MEDS: Saccharomyces boulardii 250 MG CAP PO SCH (08:39)
[2017-08-17] MEDS: Enoxaparin Sodium 30 MG/0.3 ML SYRINGE SC SCH (08:39)
[2017-08-17] MEDS: Aspirin 81 mg Enteric Coated Tablet PO SCH (08:39)
--- NOTE | 2017-08-17 11:07 | PRG ---
DATE OF SERVICE: 08/17/2017 SUBJECTIVE: The patient is feeling good. Her daughter is with her and said she slept good. This mo rning she is up in a chair eating breakfast with assistance. OBJECTIVE: The patient is sitting up in a Kerline chair. She is alert, occasionally will say a word or two. She is eating her breakfast with assistance. Her vital signs show a temperature 97.5, pulse 4 2-50, respirations 20, O2 sat 98% on room air, blood pressure 105/51. Her lungs are clear. Heart, s low regular rhythm. ASSESSMENT: 1. Generalized weakness. A. The patient tolerating sitting up in the chair, but still maximum assist with transfer as of 08/17/2017. Unchanged. 2. Status post hospitalization at [facility] from 07/12/2017 until 07/17/2017 for; A. Dehydration with hypernatremia and mild decline in GFR. B. Alteration in mental status that resolved. C. Possible urinary tract infection. Blood cultures and urine culture were negative. Do not kn ow if the urine was collected after antibiotics were initiated. 3. Advanced Alzheimer disease. A. Complicated by urine and fecal incontinence. B. Requires assistance with her ADLs and all her instrumental ADLs. 4. Hypertension. A. Controlled. 5. Bradycardia. A. Asymptomatic as of 08/17/2017. PLAN: Continue present care. I visited with the patient's daughter, Azalia, this morning and family i s looking at a assisted in [place] called [facility]. They are waiting on approval. Anticipate discharge Sunday08/20/2017.
[2017-08-18] MEDS: Saccharomyces boulardii 250 MG CAP PO SCH (08:43)
[2017-08-18] MEDS: Enoxaparin Sodium 30 MG/0.3 ML SYRINGE SC SCH (08:43)
[2017-08-18] MEDS: Aspirin 81 mg Enteric Coated Tablet PO SCH (08:43)
[2017-08-19] MEDS: Saccharomyces boulardii 250 MG CAP PO SCH (08:12)
[2017-08-19] MEDS: Enoxaparin Sodium 30 MG/0.3 ML SYRINGE SC SCH (08:13)
[2017-08-19] MEDS: Aspirin 81 mg Enteric Coated Tablet PO SCH (08:13)
--- NOTE | 2017-08-20 08:03 | PRG ---
DATE OF SERVICE: 08/20/2017 SUBJECTIVE: The patient's daughter, Azalia, is with her and said she is doing the same. They are work ing on mcc placement in [place]. They have been told that a bed should become available thi s week for them. The patient has been doing well. She is eating good. She is tolerating sitting up in a chair. OBJECTIVE: The patient is lying in bed, waking up. She appears comfortable and in no distress. Her vital signs show temperature of 97.3, pulse 50, respirations 18, O2 saturation 98% on room air, bloo d pressure 145/65. Lungs are clear. Heart, slow regular rhythm. Extremities, no edema. ASSESSMENT: 1. Generalized weakness. A. The patient tolerating sitting up in the chair, but still maximum assist with transfer as of 08/20/2017. Unchanged. 2. Status post hospitalization at [facility] from 07/12/2017 until 07/17/2017 for; A. Dehydration with hypernatremia and mild decline in GFR. B. Alteration in mental status that resolved. C. Treated for possible urinary tract infection. Blood cultures were negative. Urine culture n egative. May have been drawn after antibiotics initiated. 3. Advanced Alzheimer disease. A. Complicated by urine and fecal incontinence. B. Requires assistance with her ADLs and all her instrumental ADLs. 4. Hypertension. A. Controlled. 5. Bradycardia. A. Asymptomatic as of 08/20/2017. PLAN: The patient's condition is stable. Continue present care. Family are awaiting mcc b ed in a home in [place].
[2017-08-20] MEDS: Aspirin 81 mg Enteric Coated Tablet PO SCH (09:08)
[2017-08-20] MEDS: Saccharomyces boulardii 250 MG CAP PO SCH (09:09)
[2017-08-20] MEDS: Enoxaparin Sodium 30 MG/0.3 ML SYRINGE SC SCH (09:09)
[2017-08-20] MEDS ORDERED: Morphine 4 MG/ML VIAL IV PRN (11:13)
[2017-08-20] MEDS ORDERED: Artificial Tear Sol 15 ML BOT EA EYE PRN (11:15)
[2017-08-21 04:00] VITALS: BMI 22.1
[2017-08-21] MEDS: Enoxaparin Sodium 30 MG/0.3 ML SYRINGE SC SCH (09:23)
[2017-08-21] MEDS: Aspirin 81 mg Enteric Coated Tablet PO SCH (09:23)
[2017-08-21] MEDS: Saccharomyces boulardii 250 MG CAP PO SCH (09:23)
[2017-08-22 07:32] VITALS: TEMP 98.4
[2017-08-22] MEDS: Saccharomyces boulardii 250 MG CAP PO SCH (08:12)
[2017-08-22] MEDS: Enoxaparin Sodium 30 MG/0.3 ML SYRINGE SC SCH (08:13)
[2017-08-22] MEDS: Aspirin 81 mg Enteric Coated Tablet PO SCH (08:13)
--- NOTE | 2017-08-22 08:13 | DIS ---
FINAL DIAGNOSES: 1. Generalized weakness. A. The patient has progressed to where she is tolerating sitting up in a chair, but requires maximum assistance with transfers as of 08/22/2017. 2. Status post hospitalization at [facility] from 07/12/2017 to 07/17/2017 for dehydratio n with hypernatremia and mild decline in GFR. B. Presenting with alteration in mental status has resolved. C. Treated for possible urinary tract infection. Blood cultures were negative. Urine culture negat lianet. Blood culture may have been obtained after initiation of antibiotics. 3. Advanced Alzheimer disease. A. Complicated by urine and fecal incontinence. B. Requires assistance with all her ADLs and instrumental ADLs. 4. Hypertension. A. Controlled. 5. Bradycardia. A. Asymptomatic as of 08/22/2017. 6. CODE STATUS: DNR. SUMMARY: Ms. Erika Diez is an 87-year-old [place] female who resides at home, cared for by her famil y. She has a history of advanced Alzheimer disease complicated by urine and fecal incontinence, requ iring assistance with all her ADLs and instrumental ADLs. Additionally, she has hypertension. At [facility] the patient is able to sit up in a chair, was able to walk just a very short distance with a walke r and assistance and required assistance with eating. The patient was hospitalized at [facility] after she had a marked decline and was not eating and was very lethargic. She was admitted t o [facility] on 07/12/2017 with dehydration and hypernatremia and mild decline in her GFR. She was treated for a possible urinary tract infection and was cautiously hydrated. The blood cultur es had no growth and urine culture had no growth, but the cultures may have been obtained after she h ad been started on antibiotics. The patient was also found to be bradycardic, but with the hydration her mental status returned to her baseline and with her advanced Alzheimer's it was opted not to pur gloria further evaluation of the bradycardia. Her rates were in the 50s and 60s and occasionally in the 40s. The patient had no syncopal episodes. The patient was left improved back to her baseline ment al status. Her dehydration and mild prerenal azotemia resolved. The patient was transferred to [facility] to extended care for effort at the physical therapy. The family was trying to bring her back to the home and had hoped that with physical therapy her functional capabilities might improve to where she could be easily transferred from bed to a chair by the family and maybe walk a short dis tance with a walker and assistance. If she could reach this level of function then the daughters fel t like they could manage her in the home. The patient had physical therapy and occupational therapy work with her, but with her advanced Alzheimer disease it was very difficult for her to understand an d assist with their care. The patient was able to progress from bed confinement to where she was hung erating sitting in a chair up to 3 hours, but the transfer into a chair, required maximum assistance. The patient never was able to help with standing and pivoting with transfers and was not able to am bulate. Her condition did not improve beyond tolerating sitting up in a chair. She did eat well and take liquids good. The daughters would assist with her feeding. Her blood pressure was well contr olled during the hospitalization. She had no symptomatic bradycardic episode. Her rates usually in the 50s and 60s, blood pressure well controlled. The family had decided to place the patient in a [facility] home since her functional level did not improve beyond sitting up in a chair and required maxim um assistance and care for all her ADLs. This level of care exceeded what they could provide in the home. Most of the family lives in the [place] area and the family have found a halfway in the [facility] that has accepted her. The patient will be transferred by the family to the halfway in [place] on 08/22/2017. Her lab work done on 07/18/2017 showed a sodium 145, potassium 3.4. Her BUN was 7, creatinine 0.61, GFR greater than 90. Hemoglobin A1c 6. FBS 102, H&H of 11.8 and 36.7, white blood cell count 3900 w ith 43% segs, 44% lymphocytes, platelet count of 227. DIET: Regular diet, mechanical soft. ACTIVITIES: Up in a chair as tolerated, requires maximum assistance with transfers. MEDICATIONS: Acetaminophen 325 mg 2 every 6 hours as needed, Artificial Tears 1 drop in each eye franco ry 4 hours as needed, aspirin 81 mg daily, Dulcolax suppository 10 mg 1 per rectum daily p.r.n. CODE STATUS: DNR. The patient will be transferred to halfway in [place] by the family on 08/22/2017.
[2017-08-22 10:06] VITALS: BP 129/64
== END 2017-08-22 10:17 | DRG 948 ==
LOC: MADMS 16:25
PROVIDERS: ADMIT Family Medicine; ATTEND Family Medicine
DX: R53.1 Weakness (principal); E87.0 Hyperosmolality and hypernatremia; E11.9 Type 2 diabetes mellitus without complications; E86.0 Dehydration; N39.0 Urinary tract infection, site not specified; G30.9 Alzheimer's disease, unspecified; F02.80 Dementia in other diseases classified elsewhere, unspecified severity, without behavioral disturbance, psychotic disturbance, mood disturbance, and anxiety; I10 Essential (primary) hypertension; E78.00 Pure hypercholesterolemia, unspecified; R00.1 Bradycardia, unspecified; M19.90 Unspecified osteoarthritis, unspecified site; Z79.82 Long term (current) use of aspirin; Z88.8 Allergy status to other drugs, medicaments and biological substances; Z66 Do not resuscitate; R15.9 Full incontinence of feces; R32 Unspecified urinary incontinence
CPT/HCPCS: 36415; 80048; 83036; 85025; 90471; 90670; G0009; G8996-GN-CI; G8997-GN-CI; J1650